=== PATIENT | female | born 1945 | race Caucasian/White ===

== ENCOUNTER → 2019-09-26 | Outpatient (CLI) | payer MEDICARE, OTHER ==
[~2019-09-26] MED LIST: IOHEXOL 300 MG/ML 75 ML VIAL. IV ONE; IOHEXOL 350 MG/ML 100 ML VIAL. IV ONE
--- NOTE | 2019-09-26 13:30 | RAD ---
Chest CTA History: Cough for 3 weeks Technique: After bolus of intravenous contrast, CT imaging was performed of the chest. Multiplanar reconstruction images to include MIP reconstruction images are submitted. Exposure: One or more of the following individualized dose reduction techniques were utilized for this examination: 1. Automated exposure control 2. Adjustment of the mA and/or kV according to patient size 3. Use of iterative reconstruction technique. Comparison: None Findings: There is some motion degradation. No central pulmonary embolism is identified, limited evaluation of smaller more distal branches on this exam. There is some coronary calcification. Heart is deviated to the left, volume loss of the left hemithorax. There is no pleural or pericardial fluid or pneumothorax. There is no lobar consolidation. There is mild atelectasis greatest left lower lobe. There is some scattered mosaic attenuation of the lung parenchyma bilaterally although may be accentuated by expiratory phase of respiration during exam. There is multilevel thoracic spondylosis. Thoracic aortic caliber is within normal limits about intraluminal flap, scattered plaque present. No significantly enlarged nodes are identified of the chest. Impression: 1. No central pulmonary embolism is identified, limited evaluation of the smaller and more distal branches on this exam. There is no lobar consolidation. Electronically signed by: Arun Wild MD (09/26/2019 1:27 PM) [id number]
== END | disposition home or self-care (01) ==
LOC: CT 12:10
PROVIDERS: ATTEND Family Medicine
DX: I25.10 Atherosclerotic heart disease of native coronary artery without angina pectoris (principal); J98.11 Atelectasis; M47.894 Other spondylosis, thoracic region
CPT/HCPCS: 71275; Q9967

== ENCOUNTER → 2020-06-16 | Outpatient (CLI) | payer MEDICARE ==
--- NOTE | 2020-06-16 10:03 | RAD ---
CT HEAD INDICATION: Transient ischemic attack COMPARISON: None Available. Exposure: One or more of the following individualized dose reduction techniques were utilized for this examination: 1. Automated exposure control 2. Adjustment of the mA and/or kV according to patient size 3. Use of iterative reconstruction technique TECHNIQUE: 5 mm contiguous axial images were obtained from the skull base to the vertex in both bone and soft tissue algorithm. FINDINGS: No abnormal attenuation within the brain parenchyma. No evidence of acute intracranial hemorrhage. No extra-axial fluid collections. No mass effect or midline shift. Ventricular size is appropriate. Basal cisterns are patent. No fractures identified.Rodrigues-white differentiation is preserved.Globes and orbits are within normal limits. Paranasal sinuses and mastoid air cells are clear. IMPRESSION: No acute intracranial findings. Electronically signed by: Christopher Patel MD (06/16/2020 10:00 AM) [id number]
== END | disposition home or self-care (01) ==
LOC: CT 09:16
PROVIDERS: ATTEND Family Medicine
DX: I67.841 Reversible cerebrovascular vasoconstriction syndrome (principal)
CPT/HCPCS: 70450

== ENCOUNTER → 2020-06-17 | Outpatient (CLI) | payer MEDICARE ==
--- NOTE | 2020-06-17 12:29 | RAD ---
EXAM: Carotid Doppler sonogram. HISTORY: Transient ischemic attack. Carotid atherosclerosis. TECHNIQUE: Rodrigues scale and color Doppler sonographic evaluation of the neck with spectral waveform analysis was performed and static images are submitted for review. FINDINGS: There is mild atherosclerotic plaque throughout the carotid bifurcations. The peak systolic velocity within the right common carotid artery is 75 cm/sec. The peak systolic velocity within the right internal carotid artery is 105 cm/sec and the end diastolic velocity within the right internal carotid artery is 20 cm/sec. The peak systolic velocity within the left common carotid artery is 102 cm/sec. The peak systolic velocity within the left internal carotid artery is 117 cm/sec and the end diastolic velocity within the left internal carotid artery is 26 cm/sec. There is normal antegrade flow within both vertebral arteries. IMPRESSION: No Doppler evidence of hemodynamically significant stenosis. PQRS Compliance Statement - Stenosis calculations for CT, MR and conventional angiography are based upon measurement of the distal ICA diameter in accordance with the NASCET methodology. Stenosis calculations for carotid ultrasound studies are derived from validated velocity criteria which are known to correlate with the NASCET methodology. Electronically signed by: Karin Marrero MD (06/17/2020 12:25 PM) [id number]
== END ==
LOC: US 10:41
PROVIDERS: ATTEND Family Medicine
DX: I67.841 Reversible cerebrovascular vasoconstriction syndrome (principal)
CPT/HCPCS: 93880